=== PATIENT | female | born 1945 | race Caucasian/White ===

== ENCOUNTER 2024-03-15 10:46 | Inpatient (IN) | payer BC, MEDICARE ==
[~2024-03-15] VITALS: Ht 157.5 cm; Wt 51.7 kg
[~2024-03-15 10:46] MED LIST: ALEN1TAB3; AMLO-363; ATOR10TA; CITA40TA11 PO; FENO145T PO
[2024-03-15] MEDS: IV NS 0.9% 1,000 ML BAG IV ONE (11:05)
[2024-03-15 11:18] LABS: BASOPHILS % (AUTO) 0.7 % (0.0-2.0); EOSINOPHILS # (AUTO) 0.1 K/uL (0.0-0.7); EOSINOPHILS % (AUTO) 3.7 % (0.0-6.0); HEMATOCRIT 24 % (33-45); HEMOGLOBIN 7.5 g/dL (11.5-14.8); LYMPHOCYTES # (AUTO) 0.2 K/uL (0.8-4.8); LYMPHOCYTES % (AUTO) 5.7 % (20.0-44.0); MEAN CORPUSCULAR HEMOGLOBIN 24 PG (26.0-33.0); MEAN CORPUSCULAR HGB CONC 31 g/dl (31.0-36.0); MEAN CORPUSCULAR VOLUME 76 fL (82-100); MONOCYTES % (AUTO) 0.3 % (2.0-12.0); NEUTROPHILS # (AUTO) 2.7 K/uL (1.8-8.9); NEUTROPHILS % (AUTO) 89.6 % (43.0-81.0); PLATELET COUNT (AUTO) 328 K/uL (150-450); RED BLOOD CELL COUNT(AUTO) 3.17 MIL/uL (4.0-5.2); RED CELL DISTRIBUTION WIDTH 15.8 % (11.5-15.0)
[2024-03-15] MEDS ORDERED: AMLO-382 PO (11:33)
[2024-03-15] MEDS ORDERED: MULT-754 PO (11:33)
[2024-03-15] MEDS ORDERED: MECL-182 PO (11:33)
[2024-03-15] MEDS ORDERED: IBUP-1955 PO (11:33)
[2024-03-15] MEDS ORDERED: ESCI20TA PO (11:33)
[2024-03-15] MEDS ORDERED: ATOR20TA PO (11:33)
[2024-03-15 11:36] LABS: INR 1.11 (0.91-1.10); PROTHROMBIN TIME 11.7 SECS (9.2-11.1)
[2024-03-15] MEDS ORDERED: ACETAMINOPHEN 325 MG TABLET ONE (11:37)
[2024-03-15 11:38] LABS: CALCIUM, SERUM 8.7 mg/dL (8.5-10.1); CARBON DIOXIDE 17 mmol/L (21-32); CHLORIDE 106 mmol/L (98-107); CREATININE 1.6 mg/dL (0.6-1.3); GLUCOSE 99 mg/dL (74-106); SODIUM SERUM 140 mmol/L (136-145); UREA NITROGEN, BLOOD 39 mg/dL (7-18)
[2024-03-15] MEDS: ACETAMINOPHEN 325 MG TABLET PO ONE (11:43)
[2024-03-15] MEDS: CEFEPIME 1 GM in IV D5W 50 ML IV ONE (11:50)
[2024-03-15 11:51] LABS: ALANINE AMINOTRANSFERASE 48 U/L (12-78); ALBUMIN 2.3 g/dL (3.4-5.0); ALKALINE PHOSPHATASE 189 U/L (46-116); ASPARTATE AMINOTRANSFERASE 53 U/L (15-37); BILIRUBIN,DIRECT 0.9 mg/dL (0.0-0.2); BILIRUBIN,TOTAL 1.4 mg/dL (0.2-1.0); TOTAL PROTEIN, SERUM 6.7 g/dL (6.4-8.2)
[2024-03-15 11:56] LABS: LACTIC ACID 4.8 mmol/L (0.4-2.0)
[2024-03-15 12:28] LABS: APPEARANCE,URINE TURBID (CLEAR); COLOR,URINE ORANGE (YELLOW)
[2024-03-15] MEDS ORDERED: Z GUARD REMEDY 4 OZ OINT TP PRN (12:30)
[2024-03-15] MEDS ORDERED: MAG HYDROX/AL HYDROX/SIMETH 30 ML UDC PO PRN (12:30)
[2024-03-15] MEDS ORDERED: MAGNESIUM HYDROXIDE 30 ML UDC PO PRN (12:30)
[2024-03-15] MEDS ORDERED: ONDANSETRON HCL/PF 4 MG/2 ML VIAL IVP PRN (12:30)
[2024-03-15] MEDS: VANCOMYCIN 1 GM in IV D5W 250 ML IV ONE (12:30)
[2024-03-15 12:31] LABS: RBC,URINE 21-50 /HPF (0-2); WBC,URINE 51-80 /HPF (0-3)
[2024-03-15 12:32] LABS: BACTERIA,URINE Few /HPF (None Seen); SQUAMOUS EPITHELIAL CELL,UR 0-2 /HPF (None Seen)
[2024-03-15 12:48] LABS: BAND % (MANUAL) 5 % (0.0-5.0); EOSINOPHILS % (MANUAL) 4 % (0-4); LYMPHOCYTES % (MANUAL) 4 % (16-48); NEUTROPHILS % (MANUAL) 87 (42-76)
[2024-03-15 12:50] LABS: ANISOCYTOSIS 1+; HYPOCHROMASIA 1+; PLATELET ESTIMATE ADEQUATE
[2024-03-15] MEDS ORDERED: CEFEPIME 2 GM in IV D5W 100 ML IV SCH (13:00)
[2024-03-15 14:30] VITALS: BP 83/55; TEMP 97.7; O2SAT 98
[2024-03-15] MEDS: ASPIRIN 81 MG TAB.CHEW PO ONE (15:22)
[2024-03-15] MEDS: IV LR 1000 ML 1,000 ML IV PRN (15:45)
[2024-03-15] MEDS: ACETAMINOPHEN 325 MG TABLET PO PRN (17:07)
[2024-03-15 19:11] LABS: THYROID STIMULATING HORMONE 1.02 uIU/mL (0.358-3.74)
[2024-03-15 20:00] VITALS: BP 93/68; TEMP 98.7; O2SAT 94
[2024-03-15] MEDS: CEFEPIME 1 GM in IV D5W 50 ML IV SCH (22:26)
[2024-03-15] MEDS: ZOLPIDEM TARTRATE 5 MG TABLET PO PRN (22:57)
[2024-03-16] VITALS (11 sets, daily range): BP systolic 95–138; BP diastolic 44–67; TEMP 97.7–99; O2SAT 94–96
[2024-03-16] MEDS: ENOXAPARIN SODIUM 40 MG/0.4 ML DISP.SYRIN SQ SCH (00:11)
[2024-03-16 08:06] LABS: BASOPHILS % (AUTO) 0.2 % (0.0-2.0); EOSINOPHILS # (AUTO) 0.1 K/uL (0.0-0.7); EOSINOPHILS % (AUTO) 1.3 % (0.0-6.0); LYMPHOCYTES # (AUTO) 0.1 K/uL (0.8-4.8); LYMPHOCYTES % (AUTO) 1.8 % (20.0-44.0); MEAN CORPUSCULAR HEMOGLOBIN 24 PG (26.0-33.0); MEAN CORPUSCULAR HGB CONC 32 g/dl (31.0-36.0); MEAN CORPUSCULAR VOLUME 75 fL (82-100); MONOCYTES # (AUTO) 0.8 K/uL (0.1-1.30); MONOCYTES % (AUTO) 9.3 % (2.0-12.0); NEUTROPHILS # (AUTO) 7.4 K/uL (1.8-8.9); NEUTROPHILS % (AUTO) 87.4 % (43.0-81.0); PLATELET COUNT (AUTO) 293 K/uL (150-450); RED BLOOD CELL COUNT(AUTO) 2.53 MIL/uL (4.0-5.2); RED CELL DISTRIBUTION WIDTH 15.4 % (11.5-15.0); WHITE BLOOD COUNT (AUTO) 8.4 K/uL (4.3-11.0)
[2024-03-16 08:11] LABS: CALCIUM, SERUM 7.9 mg/dL (8.5-10.1); CREATININE 1.5 mg/dL (0.6-1.3); GLUCOSE 93 mg/dL (74-106); MAGNESIUM 2.2 mg/dL (1.8-2.4); PHOSPHORUS 2.7 mg/dL (2.5-4.9); UREA NITROGEN, BLOOD 46 mg/dL (7-18)
[2024-03-16 08:16] LABS: CHOLESTEROL 103 mg/dL (<200); HDL CHOLESTEROL 13 mg/dL (40-60); LDL 14 mg/dL (0-99); TRIGLYCERIDES 451 mg/dL (30-150)
[2024-03-16 08:17] LABS: CARBON DIOXIDE 21 mmol/L (21-32); CHLORIDE 108 mmol/L (98-107); POTASSIUM 3.3 mmol/L (3.5-5.1); SODIUM SERUM 140 mmol/L (136-145)
[2024-03-16 08:19] LABS: HEMATOCRIT 19 % (33-45)
[2024-03-16 09:41] LABS: BAND % (MANUAL) 2 % (0.0-5.0); EOSINOPHILS % (MANUAL) 3 % (0-4); LYMPHOCYTES % (MANUAL) 4 % (16-48); MONOCYTES % (MANUAL) 5 % (0-11.0); NEUTROPHILS % (MANUAL) 86 (42-76); PLATELET ESTIMATE ADEQUATE
[2024-03-16] MEDS: POTASSIUM CHLORIDE 20 MEQ TAB.PRT.SR PO SCH (10:17)
[2024-03-16] MEDS: MORPHINE SULFATE INJ 2 MG/ML DISP.SYRIN IV ONE (11:00)
[2024-03-16] MEDS: VANCOMYCIN 750 MG in IV D5W 250 ML IV SCH (12:36)
[2024-03-16] MEDS: SOD FERRIC GLUC 125 MG in IV NS 0.9% 100 ML IV SCH (13:46)
[2024-03-17] VITALS: BP 115/50; TEMP 98.6; O2SAT 95
[2024-03-17 04:00] VITALS: BP 93/48; TEMP 97.9; O2SAT 96
[2024-03-17 07:06] LABS: BASOPHILS # (AUTO) 0.1 K/uL (0.0-0.2); BASOPHILS % (AUTO) 0.7 % (0.0-2.0); EOSINOPHILS # (AUTO) 0.4 K/uL (0.0-0.7); EOSINOPHILS % (AUTO) 5.8 % (0.0-6.0); HEMATOCRIT 23 % (33-45); HEMOGLOBIN 7.3 g/dL (11.5-14.8); LYMPHOCYTES # (AUTO) 0.2 K/uL (0.8-4.8); LYMPHOCYTES % (AUTO) 2.4 % (20.0-44.0); MEAN CORPUSCULAR HEMOGLOBIN 25 PG (26.0-33.0); MEAN CORPUSCULAR HGB CONC 33 g/dl (31.0-36.0); MEAN CORPUSCULAR VOLUME 78 fL (82-100); MONOCYTES # (AUTO) 0.5 K/uL (0.1-1.30); MONOCYTES % (AUTO) 7.2 % (2.0-12.0); NEUTROPHILS # (AUTO) 6.1 K/uL (1.8-8.9); NEUTROPHILS % (AUTO) 83.9 % (43.0-81.0); PLATELET COUNT (AUTO) 243 K/uL (150-450); RED BLOOD CELL COUNT(AUTO) 2.91 MIL/uL (4.0-5.2); RED CELL DISTRIBUTION WIDTH 16.7 % (11.5-15.0); WHITE BLOOD COUNT (AUTO) 7.3 K/uL (4.3-11.0)
[2024-03-17 08:00] VITALS: BP 103/51; TEMP 98.6; O2SAT 95
[2024-03-17 08:12] LABS: CARBON DIOXIDE 22 mmol/L (21-32); CHLORIDE 111 mmol/L (98-107); GLUCOSE 87 mg/dL (74-106); SODIUM SERUM 140 mmol/L (136-145); UREA NITROGEN, BLOOD 36 mg/dL (7-18)
[2024-03-17 10:05] LABS: BAND % (MANUAL) 1 % (0.0-5.0); EOSINOPHILS % (MANUAL) 2 % (0-4); LYMPHOCYTES % (MANUAL) 3 % (16-48); MONOCYTES % (MANUAL) 5 % (0-11.0); NEUTROPHILS % (MANUAL) 89 (42-76)
[2024-03-17 10:07] LABS: ANISOCYTOSIS 1+; PLATELET ESTIMATE ADEQU; STOMATOCYTES 1+
[2024-03-17] MEDS: PANTOPRAZOLE 40 MG TABLET.DR PO SCH (14:06)
[2024-03-17 16:00] VITALS: BP 99/48; TEMP 97.2; O2SAT 97
[2024-03-17 20:00] VITALS: BP 111/48; TEMP 97.5; O2SAT 92
[2024-03-18 04:00] VITALS: BP 143/55; TEMP 98.4; O2SAT 98
[2024-03-18 08:00] VITALS: BP 138/58; TEMP 98.2; O2SAT 97
[2024-03-18 08:06] LABS: CANCER AG, 125 15.3 U/mL (0.0-38.1)
[2024-03-18 08:16] LABS: BASOPHILS # (AUTO) 0.1 K/uL (0.0-0.2); BASOPHILS % (AUTO) 0.4 % (0.0-2.0); EOSINOPHILS # (AUTO) 0.3 K/uL (0.0-0.7); EOSINOPHILS % (AUTO) 2.7 % (0.0-6.0); HEMATOCRIT 27 % (33-45); HEMOGLOBIN 8.4 g/dL (11.5-14.8); LYMPHOCYTES # (AUTO) 0.8 K/uL (0.8-4.8); LYMPHOCYTES % (AUTO) 6.7 % (20.0-44.0); MEAN CORPUSCULAR HEMOGLOBIN 25 PG (26.0-33.0); MEAN CORPUSCULAR HGB CONC 32 g/dl (31.0-36.0); MEAN CORPUSCULAR VOLUME 80 fL (82-100); MONOCYTES # (AUTO) 1.7 K/uL (0.1-1.30); MONOCYTES % (AUTO) 14.6 % (2.0-12.0); NEUTROPHILS # (AUTO) 8.7 K/uL (1.8-8.9); NEUTROPHILS % (AUTO) 75.6 % (43.0-81.0); PLATELET COUNT (AUTO) 277 K/uL (150-450); RED BLOOD CELL COUNT(AUTO) 3.36 MIL/uL (4.0-5.2); WHITE BLOOD COUNT (AUTO) 11.6 K/uL (4.3-11.0)
[2024-03-18 08:27] LABS: CARBON DIOXIDE 19 mmol/L (21-32); CHLORIDE 107 mmol/L (98-107); CREATININE 0.9 mg/dL (0.6-1.3); GLUCOSE 94 mg/dL (74-106); POTASSIUM 4.3 mmol/L (3.5-5.1); SODIUM SERUM 137 mmol/L (136-145); UREA NITROGEN, BLOOD 30 mg/dL (7-18)
[2024-03-18 10:23] LABS: LYMPHOCYTES % (MANUAL) 3 % (16-48); MONOCYTES % (MANUAL) 4 % (0-11.0)
[2024-03-18 10:24] LABS: BASOPHILS % (MANUAL) 1 % (0.0-2.0); EOSINOPHILS % (MANUAL) 1 % (0-4)
[2024-03-18 10:25] LABS: NEUTROPHILS % (MANUAL) 91 (42-76); PLATELET ESTIMATE ADEQUATE
[2024-03-18 10:27] LABS: ANISOCYTOSIS 1+
[2024-03-18] MEDS: VANCOMYCIN 1 GM in IV D5W 250ml IV SCH (14:00)
[2024-03-18 16:00] VITALS: BP 160/94; TEMP 102.7; O2SAT 94
[2024-03-18 20:00] VITALS: BP 126/60; TEMP 99.1; O2SAT 94
[2024-03-18] MEDS ORDERED: POLYETHYLENE GLYCOL 3350 17 GM POWD.PACK PO PRN (21:30)
[2024-03-19] VITALS (12 sets, daily range): BP systolic 125–158; BP diastolic 49–74; TEMP 97.8–101.3; O2SAT 96–99
[2024-03-19 07:23] LABS: CALCIUM, SERUM 8.2 mg/dL (8.5-10.1); CARBON DIOXIDE 23 mmol/L (21-32); CHLORIDE 109 mmol/L (98-107); CREATININE 0.8 mg/dL (0.6-1.3); GLUCOSE 106 mg/dL (74-106); SODIUM SERUM 140 mmol/L (136-145); UREA NITROGEN, BLOOD 21 mg/dL (7-18)
[2024-03-19 12:34] LABS: BASOPHILS # (AUTO) 0.1 K/uL (0.0-0.2); BASOPHILS % (AUTO) 0.6 % (0.0-2.0); EOSINOPHILS # (AUTO) 0.2 K/uL (0.0-0.7); EOSINOPHILS % (AUTO) 1.9 % (0.0-6.0); LYMPHOCYTES # (AUTO) 0.4 K/uL (0.8-4.8); LYMPHOCYTES % (AUTO) 3.9 % (20.0-44.0); MEAN CORPUSCULAR HEMOGLOBIN 26 PG (26.0-33.0); MEAN CORPUSCULAR HGB CONC 33 g/dl (31.0-36.0); MEAN CORPUSCULAR VOLUME 77 fL (82-100); MONOCYTES # (AUTO) 2.1 K/uL (0.1-1.30); MONOCYTES % (AUTO) 20.2 % (2.0-12.0); NEUTROPHILS # (AUTO) 7.5 K/uL (1.8-8.9); NEUTROPHILS % (AUTO) 73.4 % (43.0-81.0); PLATELET COUNT (AUTO) 241 K/uL (150-450); RED BLOOD CELL COUNT(AUTO) 2.59 MIL/uL (4.0-5.2); RED CELL DISTRIBUTION WIDTH 17.2 % (11.5-15.0); WHITE BLOOD COUNT (AUTO) 10.2 K/uL (4.3-11.0)
[2024-03-19 12:37] LABS: HEMATOCRIT 20 % (33-45); HEMOGLOBIN 6.7 g/dL (11.5-14.8)
[2024-03-19 12:53] LABS: EOSINOPHILS % (MANUAL) 2 % (0-4); LYMPHOCYTES % (MANUAL) 5 % (16-48); MONOCYTES % (MANUAL) 3 % (0-11.0); PLATELET ESTIMATE ADEQUATE
[2024-03-19 12:56] LABS: METAMYELOCYTES % 1 % (0-0); NEUTROPHILS % (MANUAL) 89 (42-76)
[2024-03-19 12:57] LABS: ANISOCYTOSIS 1+; HYPOCHROMASIA 1+
[2024-03-19 12:58] LABS: STOMATOCYTES 1+; TARGET CELLS 1+
[2024-03-20 04:00] VITALS: BP 145/64; TEMP 98.8; O2SAT 97
[2024-03-20 06:54] LABS: EOSINOPHILS # (AUTO) 0.3 K/uL (0.0-0.7); EOSINOPHILS % (AUTO) 2.7 % (0.0-6.0); HEMATOCRIT 26 % (33-45); HEMOGLOBIN 8.5 g/dL (11.5-14.8); LYMPHOCYTES # (AUTO) 0.5 K/uL (0.8-4.8); LYMPHOCYTES % (AUTO) 5.2 % (20.0-44.0); MEAN CORPUSCULAR HEMOGLOBIN 25 PG (26.0-33.0); MEAN CORPUSCULAR HGB CONC 33 g/dl (31.0-36.0); MEAN CORPUSCULAR VOLUME 78 fL (82-100); MONOCYTES % (AUTO) 9.9 % (2.0-12.0); NEUTROPHILS # (AUTO) 8.6 K/uL (1.8-8.9); NEUTROPHILS % (AUTO) 82.2 % (43.0-81.0); PLATELET COUNT (AUTO) 264 K/uL (150-450); RED BLOOD CELL COUNT(AUTO) 3.37 MIL/uL (4.0-5.2); RED CELL DISTRIBUTION WIDTH 17.7 % (11.5-15.0); WHITE BLOOD COUNT (AUTO) 10.5 K/uL (4.3-11.0)
[2024-03-20 07:09] LABS: CALCIUM, SERUM 8.9 mg/dL (8.5-10.1); CARBON DIOXIDE 23 mmol/L (21-32); CHLORIDE 104 mmol/L (98-107); CREATININE 0.6 mg/dL (0.6-1.3); GLUCOSE 115 mg/dL (74-106); MAGNESIUM 1.6 mg/dL (1.8-2.4); PHOSPHORUS 2.8 mg/dL (2.5-4.9); POTASSIUM 4.1 mmol/L (3.5-5.1); SODIUM SERUM 135 mmol/L (136-145); UREA NITROGEN, BLOOD 17 mg/dL (7-18)
[2024-03-20 07:17] LABS: BAND % (MANUAL) 1 % (0.0-5.0); EOSINOPHILS % (MANUAL) 2 % (0-4); LYMPHOCYTES % (MANUAL) 5 % (16-48)
[2024-03-20 07:18] LABS: MONOCYTES % (MANUAL) 9 % (0-11.0); NEUTROPHILS % (MANUAL) 83 (42-76)
[2024-03-20 07:19] LABS: PLATELET ESTIMATE ADEQUATE; STOMATOCYTES 1+; TARGET CELLS 1+
[2024-03-20 07:20] LABS: HYPOCHROMASIA 1+
[2024-03-20 08:00] VITALS: BP 164/73; TEMP 98.6; O2SAT 98
[2024-03-20] MEDS: ENSURE ENLIVE 237 ML LIQUID (VANILLA) PO SCH (10:25)
[2024-03-20] MEDS: MAGNESIUM OXIDE 400 MG TABLET PO ONE (10:32)
[2024-03-20 16:00] VITALS: BP 166/75; TEMP 98.6; O2SAT 96
[2024-03-20 19:52] VITALS: O2SAT 96
[2024-03-20 20:00] VITALS: BP 161/64; TEMP 98.8; O2SAT 95
[2024-03-20] MEDS ORDERED: LEVOFLOXACIN 500 MG /D5W 100ML 100 ML IV ONE (21:03)
[2024-03-20] MEDS: LEVOFLOXACIN 500 MG /D5W 100ML 500 MG in PREMIX 1 EA IV SCH (21:16)
[2024-03-20] MEDS: CLONIDINE HCL 0.1 MG TABLET PO PRN (21:45)
[2024-03-20 22:30] VITALS: BP 152/54; O2SAT 95
[2024-03-21 04:00] VITALS: BP 149/55; TEMP 98.1; O2SAT 97
[2024-03-21 07:55] LABS: BASOPHILS % (AUTO) 0.4 % (0.0-2.0); EOSINOPHILS # (AUTO) 0.3 K/uL (0.0-0.7); EOSINOPHILS % (AUTO) 2.9 % (0.0-6.0); HEMATOCRIT 26 % (33-45); HEMOGLOBIN 8.5 g/dL (11.5-14.8); LYMPHOCYTES # (AUTO) 0.2 K/uL (0.8-4.8); LYMPHOCYTES % (AUTO) 2.5 % (20.0-44.0); MEAN CORPUSCULAR HEMOGLOBIN 26 PG (26.0-33.0); MEAN CORPUSCULAR HGB CONC 33 g/dl (31.0-36.0); MEAN CORPUSCULAR VOLUME 79 fL (82-100); MONOCYTES # (AUTO) 0.7 K/uL (0.1-1.30); MONOCYTES % (AUTO) 8.3 % (2.0-12.0); NEUTROPHILS # (AUTO) 7.6 K/uL (1.8-8.9); NEUTROPHILS % (AUTO) 85.9 % (43.0-81.0); PLATELET COUNT (AUTO) 261 K/uL (150-450); RED BLOOD CELL COUNT(AUTO) 3.32 MIL/uL (4.0-5.2); WHITE BLOOD COUNT (AUTO) 8.9 K/uL (4.3-11.0)
[2024-03-21 07:59] LABS: CALCIUM, SERUM 8.4 mg/dL (8.5-10.1); CARBON DIOXIDE 21 mmol/L (21-32); CHLORIDE 106 mmol/L (98-107); CREATININE 0.6 mg/dL (0.6-1.3); GLUCOSE 109 mg/dL (74-106); MAGNESIUM 1.8 mg/dL (1.8-2.4); PHOSPHORUS 3.1 mg/dL (2.5-4.9); POTASSIUM 3.7 mmol/L (3.5-5.1); SODIUM SERUM 136 mmol/L (136-145); UREA NITROGEN, BLOOD 15 mg/dL (7-18)
[2024-03-21 08:00] VITALS: BP 143/59; TEMP 99.1; O2SAT 96
[2024-03-21] MEDS ORDERED: LEVO500T90 PO (13:28)
[2024-03-21 16:21] VITALS: BP 159/52; TEMP 98.1; O2SAT 94
[2024-03-21] MEDS ORDERED: AMLODIPINE PO SCH (16:30)
[2024-03-21] MEDS ORDERED: VALSARTAN PO SCH (16:30)
[2024-03-21 16:32] VITALS: BP 159/52
[2024-03-21] MEDS: VALSARTAN 80 MG TABLET PO SCH (16:32)
[2024-03-21] MEDS: AMLODIPINE BESYLATE 10 MG TABLET PO SCH (16:32)
== END 2024-03-21 17:45 | disposition home or self-care (01) | DRG 871 ==
LOC: ER 11:00 → TELE1 13:18 → MEDSG1 03-16 13:55 → TELE1 03-16 13:59 → MEDSG1 03-17 09:38
PROVIDERS: ADMIT Nurse Practitioner Acute Care; ATTEND Student in an Organized Health Care Education/Training Program
PROC: 30233N1 Transfusion of Nonautologous Red Blood Cells into Peripheral Vein, Percutaneous Approach (ICD-10-PCS; principal; 2024-03-16)
DX: A41.51 Sepsis due to Escherichia coli [E. coli] (principal); I21.A1 Myocardial infarction type 2; N17.0 Acute kidney failure with tubular necrosis; E87.20 Acidosis, unspecified; N39.0 Urinary tract infection, site not specified; Z16.11 Resistance to penicillins; M80.0B1A Age-related osteoporosis with current pathological fracture, right pelvis, initial encounter for fracture; E46 Unspecified protein-calorie malnutrition; M80.08XA Age-related osteoporosis with current pathological fracture, vertebra(e), initial encounter for fracture; N18.9 Chronic kidney disease, unspecified; I12.9 Hypertensive chronic kidney disease with stage 1 through stage 4 chronic kidney disease, or unspecified chronic kidney disease; D50.9 Iron deficiency anemia, unspecified; D72.819 Decreased white blood cell count, unspecified; E78.5 Hyperlipidemia, unspecified; E88.09 Other disorders of plasma-protein metabolism, not elsewhere classified; I25.10 Atherosclerotic heart disease of native coronary artery without angina pectoris; R65.20 Severe sepsis without septic shock; Z87.891 Personal history of nicotine dependence; Z88.2 Allergy status to sulfonamides; K56.41 Fecal impaction; I35.0 Nonrheumatic aortic (valve) stenosis; Z20.822 Contact with and (suspected) exposure to COVID-19; R74.01 Elevation of levels of liver transaminase levels; Z85.048 Personal history of other malignant neoplasm of rectum, rectosigmoid junction, and anus
CPT/HCPCS: 36415; 71045-TC; 80048-TC; 80061-TC; 80076-TC; 80202-TC; 81001; 82378; 82728-TC; 82962-TC; 83540-TC; 83605-TC; 83735-TC; 84100-TC; 84439-TC; 84443-TC; 84484-TC; 85025-TC; 85730-TC; 86301; 86304; 86850-TC; 87040-TC; 87086-TC; 87186-TC; 92526; 92611-TC; 93307-TC; 94799-TC; 97110-TC; 97112-TC; 97530-TC; 97535-TC; A4216; A4223; G0378; J0692; J1650; J1956; J2270; J2916; J3370; J3371; J3490; J7030; J7042; J7050; J7060; J7120; P9016